=== PATIENT | female | born 2000 | race Caucasian/White ===

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

== ENCOUNTER 2019-01-02 08:10 | Inpatient (IN) | payer MEDICAID ==
[~2019-01-02 08:10] MED LIST: EPHEDrine SULFATE 50 MG/5 ML SYG; OXYTOCIN 30 UNITS/LR 500 ML BAG IV
[2019-01-02] MEDS ORDERED: METHYLERGONOVINE 0.2 MG INJ IM ×2 (09:30→14:30)
[2019-01-02] MEDS ORDERED: CARBOPROST 250 MCG INJ IM ×2 (09:30→14:30)
[2019-01-02] MEDS ORDERED: OXYTOCIN 30 UNITS/LR 500 ML IV ×2 (09:30→14:30)
[2019-01-02] MEDS ORDERED: MISOPROSTOL 200 MCG TAB PR ×2 (09:30→14:30)
[2019-01-02] MEDS: LACTATED RINGER'S 1,000 ML IV ×2 (09:58→10:19)
[2019-01-02 10:01] LABS: ADD MAN DIFF? NO
[2019-01-02 10:05] LABS: WHITE BLOOD COUNT 7.9 10^3/ul (4.8-10.8)
[2019-01-02 10:05] LABS: BASOPHILS % 0.4 % (0.0-2.0); EOSINOPHILS % 0.1 % (0.0-7.0); HEMATOCRIT 31.8 % (37.0-47.0); HEMOGLOBIN 10.1 g/dl (12.0-16.0); LYMPHOCYTES # 1.6 10^3/ul (0.8-2.9); LYMPHOCYTES % 20.3 % (18.0-55.0); MEAN CORPUSCULAR HEMOGLOBIN 26.4 pg (29.0-33.0); MEAN CORPUSCULAR HGB CONC 31.8 g/dl (32.0-37.0); MEAN CORPUSCULAR VOLUME 83.2 fl (72.0-104.0); MEAN PLATELET VOLUME 9.6 fl (7.4-10.4); MONOCYTE # 0.5 10^3/ul (0.3-0.9); MONOCYTES % 6.5 % (0.0-13.0); NEUTROPHIL # 5.7 10^3/ul (1.6-7.5); NEUTROPHILS % 72.2 % (30.0-74.0); PLATELET COUNT 321 10^3/UL (140-415); RED BLOOD COUNT 3.82 10^6/ul (4.20-5.40); RED CELL DISTRIBUTION WIDTH 14.7 % (11.5-14.5)
[2019-01-02 10:24] LABS: INR 0.86; PARTIAL THROMBOPLASTIN TIME 25.2 Sec (23.0-35.0); PROTIME 11.8 Sec (11.9-14.9); PT RATIO 0.9
[2019-01-02] MEDS: CEFAZOLIN 2 GM/50 ML (PMX) 50 ML IVPB (10:24)
[2019-01-02] MEDS ORDERED: morphine SULFATE/PF (10 MG/10 ML) INJ (10:49)
[2019-01-02] MEDS ORDERED: PHENYLephrine (100 MCG/ML) 10ML SYG ×2 (10:59→11:31)
[2019-01-02] MEDS ORDERED: FENTAnyl 50 MCG/ML VIAL IV ×2 (11:00)
[2019-01-02] MEDS ORDERED: MEPERIDINE 25 MG INJ IV (11:00)
[2019-01-02] MEDS ORDERED: HYDROmorphONE 1 MG/5 ML IV SYRINGE IV ×3 (11:00)
[2019-01-02] MEDS ORDERED: ALBUTEROL 0.083% (NEB) 2.5 MG/3 ML AMP HHN (11:00)
[2019-01-02] MEDS ORDERED: NALOXONE (0.4 MG/ML) INJ IV (11:00)
[2019-01-02] MEDS ORDERED: HYDROmorphONE 0.5 MG/0.5 ML SYG IV ×2 (11:00)
[2019-01-02] MEDS ORDERED: ONDANSETRON 4 MG INJ IV (11:00)
[2019-01-02] MEDS ORDERED: DIPHENHYDRAMINE 50 MG INJ IV (11:00)
[2019-01-02] MEDS ORDERED: PHENYLephrine 10 MG INJ (11:31)
[2019-01-02] MEDS: OXYTOCIN 30 UNITS/LR 500 ML IV ×2 (12:34→16:52)
[2019-01-02] MEDS: ONDANSETRON 4 MG INJ IV (12:44)
[2019-01-02 12:48] LABS: HEPATITIS B SURFACE ANTIGEN NEGATIVE (NEGATIVE)
[2019-01-02] MEDS: KETOROLAC 30 MG INJ IV (13:29)
[2019-01-02] MEDS: DEXTROSE 5%-LR 1,000 ML IV ×2 (14:08→22:08)
[2019-01-02] MEDS ORDERED: METHYLERGONOVINE 0.2 MG TAB PO (14:30)
[2019-01-02] MEDS: LANOLIN HPA 1 PKT TOP (16:52)
[2019-01-02 19:55] LABS: RAPID PLASMA REAGIN NONREACTIVE (NR)
[2019-01-02] MEDS: MAGNESIUM HYDROXIDE 30ML CUP PO (21:17)
[2019-01-02] MEDS: SENNA/DOCUSATE NA (8.6MG/50MG) TAB PO (21:17)
[2019-01-03] MEDS: DEXTROSE 5%-LR 1,000 ML IV ×3 (02:26→22:08)
[2019-01-03] MEDS: DIPHENHYDRAMINE 50 MG INJ IV (02:26)
[2019-01-03 07:54] LABS: ADD MAN DIFF? NO
[2019-01-03 07:58] LABS: BASOPHILS % 0.2 % (0.0-2.0); EOSINOPHILS # 0.1 10^3/ul (0.0-0.5); EOSINOPHILS % 0.5 % (0.0-7.0); HEMOGLOBIN 7.1 g/dl (12.0-16.0); LYMPHOCYTES # 1.5 10^3/ul (0.8-2.9); LYMPHOCYTES % 13.5 % (18.0-55.0); MEAN CORPUSCULAR HEMOGLOBIN 26.9 pg (29.0-33.0); MEAN CORPUSCULAR HGB CONC 32.3 g/dl (32.0-37.0); MEAN CORPUSCULAR VOLUME 83.3 fl (72.0-104.0); MEAN PLATELET VOLUME 9.9 fl (7.4-10.4); MONOCYTE # 0.7 10^3/ul (0.3-0.9); MONOCYTES % 6.8 % (0.0-13.0); NEUTROPHIL # 8.5 10^3/ul (1.6-7.5); NEUTROPHILS % 78.4 % (30.0-74.0); PLATELET COUNT 257 10^3/UL (140-415); RED BLOOD COUNT 2.64 10^6/ul (4.20-5.40); RED CELL DISTRIBUTION WIDTH 14.6 % (11.5-14.5)
[2019-01-03 07:58] LABS: WHITE BLOOD COUNT 10.8 10^3/ul (4.8-10.8)
[2019-01-03] MEDS: KETOROLAC 30 MG INJ IV (09:57)
[2019-01-03] MEDS: MAGNESIUM HYDROXIDE 30ML CUP PO ×2 (10:00→21:10)
[2019-01-03] MEDS: SENNA/DOCUSATE NA (8.6MG/50MG) TAB PO ×2 (10:00→21:10)
[2019-01-03] MEDS ORDERED: DIPHTH/TET/ACEL PERTUSS (ADULT) 0.5 ML VIAL IM* (11:00)
[2019-01-03] MEDS ORDERED: HYDROCODONE/APAP (5/325) TAB NGT (11:00)
[2019-01-03] MEDS: IBUPROFEN 800 MG TAB PO ×2 (14:31→21:10)
[2019-01-03] MEDS: HYDROCODONE/APAP (5/325) TAB GTB ×2 (14:32→22:00)
[2019-01-03] MEDS: INFLUENZA VIRUS VACCINE 0.5 ML (DISPENSING) IM* (14:39)
[2019-01-03] MEDS: FERROUS SULFATE (EC) 325 MG TAB PO (21:09)
[2019-01-04] MEDS: IBUPROFEN 800 MG TAB PO ×3 (05:50→21:29)
[2019-01-04] MEDS: HYDROCODONE/APAP (5/325) TAB GTB ×3 (05:51→21:29)
[2019-01-04] MEDS: DEXTROSE 5%-LR 1,000 ML IV ×2 (06:08→14:08)
[2019-01-04] MEDS: SENNA/DOCUSATE NA (8.6MG/50MG) TAB PO ×2 (08:51→20:27)
[2019-01-04] MEDS: FERROUS SULFATE (EC) 325 MG TAB PO ×3 (08:51→20:27)
[2019-01-04] MEDS: MAGNESIUM HYDROXIDE 30ML CUP PO ×2 (08:51→20:27)
[2019-01-04] MEDS: ACYCLOVIR 400 MG TAB PO ×2 (11:31→20:27)
[2019-01-04 12:53] LABS: IRON 71 ug/dl (35-150)
[2019-01-04 13:02] LABS: % IRON SATURATION 15 % SAT (22-52); TOTAL IRON BINDING CAPACITY 489 ug/dl (241-421)
[2019-01-04 13:29] LABS: FERRITIN 8.6 ng/ml (6.2-137.0)
[2019-01-05] MEDS: HYDROCODONE/APAP (5/325) TAB GTB (05:39)
[2019-01-05] MEDS: IBUPROFEN 800 MG TAB PO (05:40)
[2019-01-05] MEDS: MAGNESIUM HYDROXIDE 30ML CUP PO ×2 (09:00→09:06)
[2019-01-05] MEDS: SENNA/DOCUSATE NA (8.6MG/50MG) TAB PO (09:04)
[2019-01-05] MEDS: FERROUS SULFATE (EC) 325 MG TAB PO ×2 (09:04→12:45)
[2019-01-05] MEDS: ACYCLOVIR 400 MG TAB PO (09:04)
[2019-01-05] MEDS: DIPHTH/TET/ACEL PERTUSS (ADULT) 0.5 ML VIAL IM* (09:55)
[2019-01-05] MEDS: MEASLES,MUMPS,RUBELLA VACCINE INJ SC* (09:56)
== END 2019-01-05 13:40 | disposition home or self-care (01) | DRG 788 ==
LOC: L-D 08:10 → PP1 15:20
PROVIDERS: Obstetrics & Gynecology
PROC: 10D00Z1 Extraction of Products of Conception, Low, Open Approach (ICD-10-PCS; principal; 2019-01-02 10:00)
DX: O32.8XX0 Maternal care for other malpresentation of fetus, not applicable or unspecified (principal); O90.81 Anemia of the puerperium; D64.9 Anemia, unspecified; Z3A.39 39 weeks gestation of pregnancy; Z37.0 Single live birth; Z23 Encounter for immunization
CPT/HCPCS: 76815; 82728; 82962; 83540; 85025; 85610; 85730; 86592; 86850; 86900; 86901; 87340; 90715; 99464

== ENCOUNTER 2019-04-16 15:16 | Emergency (ER) | payer MEDICAID ==
[2019-04-16] MEDS: METOCLOPRAMIDE 10 MG INJ IV (17:01)
[2019-04-16] MEDS: DIPHENHYDRAMINE 50 MG INJ IV (17:02)
[2019-04-16] MEDS: SOD CHLORIDE 0.9% 1,000 ML IV (17:02)
[2019-04-16] MEDS: KETOROLAC 30 MG INJ IV (17:02)
== END 2019-04-16 19:05 | disposition home or self-care (01) ==
LOC: FTE 15:16
DX: R51 Headache (principal)
CPT/HCPCS: 36415; 81025; 96374; 96375; 99284-25

== ENCOUNTER 2019-05-16 11:19 | Emergency (ER) | payer MEDICAID ==
[2019-05-16] MEDS: ONDANSETRON 4 MG INJ IV (12:40)
[2019-05-16] MEDS: SOD CHLORIDE 0.9% 1,000 ML IV (12:40)
[2019-05-16] MEDS: DICYCLOMINE 20 MG INJ IM (12:41)
== END 2019-05-16 14:00 | disposition home or self-care (01) ==
LOC: FTE 11:19
DX: R11.2 Nausea with vomiting, unspecified (principal)
CPT/HCPCS: 81025; 96361; 96372; 96374; 99284-25

== ENCOUNTER 2019-06-13 13:46 | Emergency (ER) | payer SELFPAY, MEDICAID | END 2019-06-13 16:46 | disposition left against medical advice (07) | LOC: FTE 13:46 | DX: Z53.21 Procedure and treatment not carried out due to patient leaving prior to being seen by health care provider (principal) ==